=== PATIENT | male | born 1980 | race Caucasian/White ===

== ENCOUNTER 2023-03-28 04:12 | Day surgery (SDC) | payer OTHER ==
[2023-03-25 17:46] VITALS: BMI 28.5
[2023-03-28] MEDS ORDERED: PROPOFOL 20 ML ONE ×4 (07:50→09:27)
[2023-03-28] MEDS ORDERED: MIDAZOLAM HCL 2 MG/2 ML SINGLE DOSE VIAL ONE ×2 (07:50→08:26)
[2023-03-28] MEDS ORDERED: DEXAMETHASONE SOD PHOSPHATE 10 MG/1 ML VIAL ONE (07:54)
[2023-03-28] MEDS ORDERED: ROPIVACAINE HCL 0.5% 30ML VIAL ONE (07:54)
[2023-03-28] MEDS ORDERED: ceFAZolin SODIUM 1 GM VIAL IVPB ONE (08:30)
[2023-03-28] MEDS ORDERED: ONDANSETRON 4 MG/2 ML VIAL IVPUSH PRN (08:31)
[2023-03-28] MEDS ORDERED: oxyCODONE HCL 5 MG TABLET PO PRN (08:31)
[2023-03-28] MEDS ORDERED: METOPROLOL TARTRATE 5 MG/5 ML VIAL ONE (08:36)
[2023-03-28] MEDS ORDERED: ceFAZolin SODIUM 1 GM VIAL ONE (08:36)
[2023-03-28] MEDS ORDERED: KETOROLAC TROMETHAMINE 30 MG/1 ML VIAL ONE (08:36)
[2023-03-28] MEDS ORDERED: hydrALAZINE HCL 20 MG/ML VIAL ONE (08:36)
[2023-03-28] MEDS ORDERED: DEXAMETHASONE SOD PHOSPHATE 4 MG/1 ML VIAL ONE (08:36)
[2023-03-28] MEDS ORDERED: LACTATED RINGERS SOLUTION 1,000 ML IV SCH (08:45)
[2023-03-28] MEDS ORDERED: ROCURONIUM BROMIDE 50 MG/5 ML SYRINGE ONE (09:51)
[2023-03-28 10:57] VITALS: RESP 18
[2023-03-28] MEDS ORDERED: oxyCODONE HCL 5 MG TABLET ONE (11:24)
[2023-03-28 15:09] VITALS: BP 118/66; PULSE 95; TEMP 97.8
== END 2023-03-28 12:30 | disposition home or self-care (01) ==
LOC: JASU-SURG 04:12
PROVIDERS: ATTEND Orthopaedic Surgery
PROC: 0LS30ZZ Reposition Right Upper Arm Tendon, Open Approach (ICD-10-PCS; principal; 2023-03-28 08:35)
DX: S46.211A Strain of muscle, fascia and tendon of other parts of biceps, right arm, initial encounter (principal); X58.XXXA Exposure to other specified factors, initial encounter; Y93.9 Activity, unspecified; Y92.9 Unspecified place or not applicable; Y99.9 Unspecified external cause status
CPT/HCPCS: 94760; C1713; J1100